=== PATIENT | male | born 1980 | race African-American/Black ===

== ENCOUNTER 2025-04-11 08:42 | Outpatient (CLI) | payer OTHER | END 2025-04-11 08:43 | disposition home or self-care (01) | LOC: CSHSLEEP 08:42 | PROVIDERS: ATTEND Internal Medicine | DX: G47.33 Obstructive sleep apnea (adult) (pediatric) (principal); R53.83 Other fatigue; R09.89 Other specified symptoms and signs involving the circulatory and respiratory systems; K21.9 Gastro-esophageal reflux disease without esophagitis; R06.83 Snoring; G47.00 Insomnia, unspecified | CPT/HCPCS: 95811 ==